=== PATIENT | male | born 1935 | race Caucasian/White ===

== ENCOUNTER 2016-12-23 09:07 | Emergency (ER) | payer OTHER ==
[2016-12-23 09:11] VITALS: BP 160/75; PULSE 60; TEMP 97.9; BMI 41.5
--- NOTE | 2016-12-23 10:00 | PDOC ---
History of Present Illness - General Chief Complaint: Lightheaded Stated Complaint: DIZZINESS, FEET SWELLING (DIABETIC) History Source: Patient Exam Limitations: No Limitations - History of Present Illness Initial Comments: 12/23/16 10:36 Pt was initally seen and examined. pt states he had seen his PCP 2 days ago with c/o lower back pain that radiates to the bilateral hip and thighs for a few weeks. He was given referrals and appointments for further work up of his pain It appears that this pain may be differential work up for neuropathy and sending pt to neurology. Pt scheduled for MRI, blood work and nerve tests on SundayDec 25. Pt has no new pain and does not take pain medications except advil but not for 2 days. Past History - Past Medical History Allergies/Adverse Reactions: Allergies Allergy/AdvReac Type Severity Reaction Status Date / Time No Known Allergies Allergy Verified 12/23/16 09:11 Home Medications: Ambulatory Orders Ibuprofen [Motrin -] 400 mg PO DAILY 12/23/16 Ranitidine [Zantac -] 150 mg PO DAILY 12/23/16 Sitagliptin Phosphate [Januvia] 50 mg PO DAILY 12/23/16 Cancer: Yes (Prostate CA) Diabetes: Yes GI Disorders: Yes (constipation) Disorders: Yes (nocturia) - Surgical History Abdominal Surgery: Yes (hernia repair) Cholecystectomy: Yes - Suicide/Smoking/Psychosocial Hx Smoking Status: No Smoking History: Never smoked Have you smoked in the past 12 months: No Number of Cigarettes Smoked Daily: 0 Information on smoking cessation initiated: No Hx Alcohol Use: No Drug/Substance Use Hx: No Substance Use Type: None Hx Substance Use Treatment: No Review of Systems - Review of Systems Able to Perform ROS?: Yes Constitutional: No: Symptoms Reported Respiratory: No: Symptoms reported Cardiac (ROS): No: Symptoms Reported ABD/GI: Yes: Other (large obese belly) : No: Symptoms Reported Musculoskeletal: Yes: Back Pain Integumentary: No: Symptoms Reported Neurological: Yes: Numbness, Paresthesia, Unsteady Gait *Physical Exam - Vital Signs Last Vital Signs Temp Pulse Resp BP Pulse Ox 97.9 F 60 18 160/75 97 12/23/16 09:09 12/23/16 09:09 12/23/16 09:09 12/23/16 09:09 12/23/16 09:09 - Physical Exam General Appearance: Yes: Obese HEENT: positive: Normal Voice, Symmetrical Respiratory/Chest: positive: Normal Breath Sounds Cardiovascular: positive: Regular Rhythm, Regular Rate Gastrointestinal/Abdominal: positive: Flat, Soft Musculoskeletal: positive: Normal Inspection, Other (c/o pain lower back pain radiates down legs. able to ambulate, walked to ER) Extremity: positive: Normal Capillary Refill Integumentary: positive: Normal Color, Dry Medical Decision Making - Medical Decision Making 12/23/16 10:42 Pt was seen and examined. Pt is requesting an MRI and his tests that the Dr. Oliveira asked for. I explained that we do not do outpatient work up in ER He states his pain is 2/10 and did not want pain medications. Pt discharged to follow up as schedled *DC/Admit/Observation/Transfer Diagnosis at time of Disposition: Chronic lower back pain Qualifiers: Back pain laterality: bilateral Sciatica presence: unspecified whether sciatica present Qualified Code(s): M54.5 - Low back pain; M54.5 - Low back pain ; G89.29 - Other chronic pain; G89.29 - Other chronic pain - Discharge Dispostion Disposition: HOME Condition at time of disposition: Stable Admit: No - Referrals Referrals: Irina Oliveira MD [Primary Care Provider] - - Patient Instructions Printed Discharge Instructions: Managing Chronic Low Back Pain Additional Instructions: You were seen in ER for lower back pain and pain that runs down the lower legs that is considered chronic. You are scheduled for a outpatient work up from your primary Dr. Oliveira for Sunday a the neurologist. Please follow up and continue to show up for these appointments that are scheuduled. You refused pain meds here and deny need for pain meds. You can try a heating pad and back stretches to help with pain.
--- NOTE | 2016-12-29 09:21 | EKG ---
Test Reason : Blood Pressure : / mmHG Vent. Rate : 055 BPM Atrial Rate : 055 BPM P-R Int : 172 ms QRS Dur : 100 ms QT Int : 448 ms P-R-T Axes : 036 -21 043 degrees QTc Int : 428 ms SINUS BRADYCARDIA WITH SINUS ARRHYTHMIA INCOMPLETE RIGHT BUNDLE BRANCH BLOCK NONSPECIFIC T WAVE ABNORMALITY ABNORMAL ECG WHEN COMPARED WITH ECG OF 13-AUG-2014 23:29, INCOMPLETE RIGHT BUNDLE BRANCH BLOCK IS NOW PRESENT Confirmed by OSWALDO BAUTISTA MD ([id number]) on 12/29/2016 9:20:36 AM Referred By: Confirmed By:OSWALDO BAUTISTA MD
== END 2016-12-23 10:37 | disposition home or self-care (01) ==
LOC: JER 09:07
DX: M54.5 Low back pain (principal); G89.29 Other chronic pain; C61 Malignant neoplasm of prostate; E11.9 Type 2 diabetes mellitus without complications; K59.00 Constipation, unspecified; R35.1 Nocturia
CPT/HCPCS: 93005; 93010; 99282-25

== ENCOUNTER 2020-09-10 15:31 | Emergency (ER) | payer OTHER ==
[2020-09-10 16:03] VITALS: BP 142/64; PULSE 60; TEMP 99.2; BMI 35.3
[2020-09-10] MEDS ORDERED: CEPHALEXIN MONOHYDRATE 500 MG CAPSULE (UD) PO ONE (17:02)
[2020-09-10] MEDS ORDERED: SULFAMETHOXAZOLE/TRIMETHOPRIM 800MG/160MG D.S. TABLET PO ONE (17:02)
[2020-09-10] MEDS ORDERED: SULFAMETHOXAZOLE/TRIMETHOPRIM 800MG/160MG D.S. TABLET ONE (17:05)
[2020-09-10] MEDS ORDERED: CEPHALEXIN MONOHYDRATE 500 MG CAPSULE (UD) ONE (17:05)
== END 2020-09-10 17:23 | disposition home or self-care (01) ==
LOC: FER 15:31
DX: L03.115 Cellulitis of right lower limb (principal)
CPT/HCPCS: 99283-25

== ENCOUNTER 2021-06-20 14:12 | Emergency (ER) | payer OTHER ==
[2021-06-20 14:30] VITALS: BP 140/80; PULSE 72; TEMP 98.3; BMI 39.4
[2021-06-20] MEDS ORDERED: ACETAMINOPHEN 500 MG TABLET (FP) PO ONE (15:18)
[2021-06-20] MEDS ORDERED: ACETAMINOPHEN 500 MG TABLET (FP) ONE (15:26)
== END 2021-06-20 16:03 | disposition home or self-care (01) ==
LOC: FER 14:12
DX: R07.82 Intercostal pain (principal)
CPT/HCPCS: 71101-TC-RT-FY; 99284-25